=== PATIENT | male | born 1950 | race Two or more races ===

== ENCOUNTER 2024-02-29 15:41 | Inpatient (IN) | payer MEDICARE ==
[~2024-02-29] VITALS: Ht 170.2 cm; Wt 63.2 kg
[2024-02-29 17:47] LABS: Basophils # (auto) 0.1 10 ^3/uL (0-0.2); Basophils % (auto) 1.3 % (0.0-2.0); Eosinophils # (auto) 0.4 10 ^3/uL (0-0.8); Eosinophils % (auto) 5.2 % (0.0-7.0); Hematocrit 43.3 % (41.0-53.0); Hemoglobin 14.6 g/dL (13.5-17.5); Lymphocytes # (auto) 1.3 10 ^3/uL (0.4-5.4); Lymphocytes % (auto) 17.5 % (10.0-50.0); Mean Corpuscular Hemoglobin 30.6 pg (28.0-32.0); Mean Corpuscular Hgb Conc. 33.8 g/dL (32.0-36.0); Mean Corpuscular Volume 90.5 fL (80.0-100.0); Neutrophils # (auto) 4.6 10 ^3/uL (1.6-8.6); Nucleated Red Blood Cells % 0.1 %; Red Blood Cells 4.78 10^6/uL (4.5-5.90); Red Cell Distribution Width 14.3 % (11.8-14.3); White Blood Cell 7.4 10^3/uL (4.4-10.8)
[2024-02-29 18:10] LABS: Alanine Aminotransferase 339 U/L (7-40); Albumin 4.5 g/dL (3.2-4.8); Alkaline Phosphatase 430 U/L (46-116); Aspartate Aminotransferase 101 U/L (13-40); BUN/Creatinine Ratio 8.6 (10.0-20.0); Bilirubin, Total 4.6 mg/dL (0.2-1.0); Blood Urea Nitrogen 7 mg/dL (9-23); Calcium 9.9 mg/dL (8.7-10.4); Carbon Dioxide 22 mmol/L (20-30); Glucose 99 mg/dL (74-106); Total Protein 7.6 g/dL (5.7-8.2)
[2024-02-29] MEDS: SODIUM CHLORIDE 0.9% 1,000 ML IV ONE (18:19)
[2024-02-29 18:51] LABS: Anion Gap 8 (5-15); Chloride 104 mmol/L (98-107); Potassium 4.2 mmol/L (3.5-5.1); Sodium 134 mmol/L (136-145)
[2024-02-29] MEDS: PANTOPRAZOLE 40 MG TAB PO ONE (19:05)
[2024-02-29] MEDS: LIDOCAINE VISCOUS 2% 15ML UD PO ONE (19:05)
[2024-02-29] MEDS: SUCRALFATE 1 GM TAB PO ONE (19:05)
[2024-02-29] MEDS ORDERED: ONDANSETRON HCL 4 MG/2 ML VIAL IV PRN (19:30)
[2024-02-29] MEDS ORDERED: MORPHINE SULFATE INJ 2 MG/ml SYRG IV PRN (19:30)
[2024-02-29] MEDS ORDERED: NITROGLYCERIN 0.4 MG SL TAB SL PRN (19:30)
[2024-02-29] MEDS: SODIUM CHLORIDE 0.9% 1,000 ML IV SCH (19:30)
[2024-02-29 22:47] VITALS: PULSE 62; RESP 17; O2SAT 100
[2024-02-29] MEDS: traMADol HCL 50 MG TAB PO ONE (23:09)
[2024-02-29 23:27] LABS: Urine Bacteria FEW /hpf (None Seen); Urine Blood TRACE /uL (Negative); Urine Clarity Clear (Clear); Urine Color Dark-Yellow (Yellow); Urine Mucus FEW (None Seen); Urine Protein, UAD Negative (Negative); Urine Specific Gravity 1.012 (1.001-1.035); Urine Urobilinogen Normal (Negative); Urine WBC 1 /hpf (0 - 3)
[2024-03-01] VITALS (8 sets, daily range): BP systolic 135–167; BP diastolic 70–83; PULSE 59–67; RESP 18–20; TEMP 98–98.7; O2SAT 94–97
[2024-03-01] MEDS ORDERED: ATOR10TA52 PO (01:46)
[2024-03-01] MEDS ORDERED: OMEP-448 PO (01:46)
[2024-03-01] MEDS: MORPHINE SULFATE INJ 2 MG/ml SYRG IV PRN (02:19)
[2024-03-01 06:59] LABS: Basophils # (auto) 0.1 10 ^3/uL (0-0.2); Basophils % (auto) 0.9 % (0.0-2.0); Eosinophils # (auto) 0.3 10 ^3/uL (0-0.8); Eosinophils % (auto) 3.3 % (0.0-7.0); Hematocrit 39.4 % (41.0-53.0); Hemoglobin 13.5 g/dL (13.5-17.5); Lymphocytes # (auto) 1.5 10 ^3/uL (0.4-5.4); Lymphocytes % (auto) 20.1 % (10.0-50.0); Mean Corpuscular Hgb Conc. 34.1 g/dL (32.0-36.0); Mean Corpuscular Volume 90.7 fL (80.0-100.0); Monocytes # (auto) 1.1 10 ^3/uL (0-1.3); Monocytes % (auto) 14.9 % (0.0-12.0); Neutrophils # (auto) 4.6 10 ^3/uL (1.6-8.6); Neutrophils % (auto) 60.8 % (37.0-80.0); Red Blood Cells 4.35 10^6/uL (4.5-5.90); Red Cell Distribution Width 14.2 % (11.8-14.3); White Blood Cell 7.6 10^3/uL (4.4-10.8)
[2024-03-01 07:16] LABS: Alanine Aminotransferase 265 U/L (7-40); Alkaline Phosphatase 370 U/L (46-116); Anion Gap 5 (5-15); Aspartate Aminotransferase 82 U/L (13-40); BUN/Creatinine Ratio 10.8 (10.0-20.0); Blood Urea Nitrogen 9 mg/dL (9-23); Calcium 9.5 mg/dL (8.7-10.4); Carbon Dioxide 26 mmol/L (20-30); Chloride 105 mmol/L (98-107); Glucose 99 mg/dL (74-106); Potassium 4.1 mmol/L (3.5-5.1); Sodium 136 mmol/L (136-145)
[2024-03-01 07:17] LABS: Bilirubin, Total 5.2 mg/dL (0.2-1.0); Total Protein 6.7 g/dL (5.7-8.2)
[2024-03-01] MEDS: PANTOPRAZOLE 40 MG/10 ML VIAL INJ IV ONE (11:54)
[2024-03-01] MEDS: cefTRIAXone 1GM/50ML D5W 50 ML IV ONE (12:32)
[2024-03-01] MEDS: metroNIDAZOLE 500MG/100ML 100 ML IV SCH (13:49)
[2024-03-01] MEDS: metroNIDAZOLE 500MG/100ML 100 ML IV ONE (13:49)
[2024-03-01 13:55] LABS: Hepatitis B Surface Antigen Negative (Negative)
[2024-03-01 14:15] LABS: Hepatitis A Ab IgM Negative
[2024-03-01 14:16] LABS: Hepatitis B Core IgM Negative; Hepatitis C Antibody Negative (Negative)
[2024-03-02 05:00] VITALS: BP 143/76; PULSE 60; RESP 18; TEMP 98.6; O2SAT 94
[2024-03-02 05:03] LABS: Basophils # (auto) 0.1 10 ^3/uL (0-0.2); Basophils % (auto) 0.8 % (0.0-2.0); Eosinophils # (auto) 0.4 10 ^3/uL (0-0.8); Eosinophils % (auto) 5.1 % (0.0-7.0); Hematocrit 37.6 % (41.0-53.0); Hemoglobin 13.1 g/dL (13.5-17.5); Lymphocytes # (auto) 1.3 10 ^3/uL (0.4-5.4); Lymphocytes % (auto) 15.5 % (10.0-50.0); Mean Corpuscular Hemoglobin 31.3 pg (28.0-32.0); Mean Corpuscular Hgb Conc. 34.8 g/dL (32.0-36.0); Mean Corpuscular Volume 90.1 fL (80.0-100.0); Monocytes # (auto) 1.4 10 ^3/uL (0-1.3); Monocytes % (auto) 17.2 % (0.0-12.0); Neutrophils % (auto) 61.4 % (37.0-80.0); Red Blood Cells 4.17 10^6/uL (4.5-5.90); White Blood Cell 8.1 10^3/uL (4.4-10.8)
[2024-03-02 05:14] LABS: Alanine Aminotransferase 194 U/L (7-40); Albumin 3.9 g/dL (3.2-4.8); Alkaline Phosphatase 351 U/L (46-116); Anion Gap 6 (5-15); Aspartate Aminotransferase 58 U/L (13-40); BUN/Creatinine Ratio 9.8 (10.0-20.0); Bilirubin, Total 6.6 mg/dL (0.2-1.0); Blood Urea Nitrogen 8 mg/dL (9-23); Calcium 9.4 mg/dL (8.7-10.4); Carbon Dioxide 26 mmol/L (20-30); Chloride 103 mmol/L (98-107); Cholesterol 147 mg/dL (< 200); Glucose 106 mg/dL (74-106); HDL Cholesterol 26 mg/dL (40-59); LDL Cholesterol 106 mg/dL (< 100); Potassium 3.7 mmol/L (3.5-5.1); Sodium 135 mmol/L (136-145); Total Protein 6.5 g/dL (5.7-8.2); Triglycerides 80 mg/dL (< 150)
[2024-03-02] MEDS: DOCUSATE SOD 100 MG CAP PO PRN (05:34)
[2024-03-02 08:00] VITALS: PULSE 59; RESP 17; O2SAT 94
[2024-03-02 08:06] LABS: AFP Serum Tumor Marker <1.8 ng/mL (0.0-8.4); PSA Free 0.04 ng/mL; Prostate Specific Antigen 0.2 ng/mL (0.0-4.0)
[2024-03-02 09:00] VITALS: BP 140/74; PULSE 9; RESP 17; TEMP 98.6; O2SAT 94
[2024-03-02] MEDS: cefTRIAXone 1GM/50ML D5W 50 ML IV SCH (09:05)
[2024-03-02] MEDS: PANTOPRAZOLE 40 MG/10 ML VIAL INJ IV SCH (09:09)
[2024-03-02 11:28] LABS: INR 1.05 (0.9-1.15); Partial Thromboplastin Time 25.6 SEC (24.5-34.5); Prothrombin Time 11.1 sec (9.3-11.8)
[2024-03-02 13:00] VITALS: BP 144/69; PULSE 60; RESP 18; TEMP 97.6; O2SAT 95
[2024-03-02 17:00] VITALS: BP 154/75; PULSE 65; RESP 18; TEMP 98.7; O2SAT 95
[2024-03-02 20:00] VITALS: PULSE 60; RESP 18; O2SAT 93
[2024-03-03] VITALS (8 sets, daily range): BP systolic 129–153; BP diastolic 70–75; PULSE 50–66; RESP 16–20; TEMP 97.5–98.4; O2SAT 94–100
[2024-03-03 06:55] LABS: Basophils # (auto) 0.1 10 ^3/uL (0-0.2); Basophils % (auto) 0.9 % (0.0-2.0); Eosinophils # (auto) 0.6 10 ^3/uL (0-0.8); Eosinophils % (auto) 8.3 % (0.0-7.0); Hematocrit 36.6 % (41.0-53.0); Hemoglobin 12.8 g/dL (13.5-17.5); Lymphocytes # (auto) 1.3 10 ^3/uL (0.4-5.4); Lymphocytes % (auto) 17.8 % (10.0-50.0); Mean Corpuscular Hemoglobin 31.4 pg (28.0-32.0); Mean Corpuscular Hgb Conc. 34.9 g/dL (32.0-36.0); Mean Corpuscular Volume 89.9 fL (80.0-100.0); Monocytes # (auto) 1.2 10 ^3/uL (0-1.3); Monocytes % (auto) 16.6 % (0.0-12.0); Neutrophils # (auto) 4.2 10 ^3/uL (1.6-8.6); Neutrophils % (auto) 56.4 % (37.0-80.0); Nucleated Red Blood Cells % 0.1 %; Red Blood Cells 4.07 10^6/uL (4.5-5.90); Red Cell Distribution Width 14.2 % (11.8-14.3); White Blood Cell 7.4 10^3/uL (4.4-10.8)
[2024-03-03 07:06] LABS: Anion Gap 5 (5-15); Carbon Dioxide 27 mmol/L (20-30); Chloride 103 mmol/L (98-107); Potassium 3.5 mmol/L (3.5-5.1); Sodium 135 mmol/L (136-145)
[2024-03-03 07:07] LABS: Calcium 9.2 mg/dL (8.7-10.4)
[2024-03-03 07:12] LABS: BUN/Creatinine Ratio 8.5 (10.0-20.0); Blood Urea Nitrogen 7 mg/dL (9-23); Glucose 95 mg/dL (74-106)
[2024-03-03 08:28] LABS: Albumin 3.8 g/dL (3.2-4.8); Bilirubin, Direct 6.1 mg/dL (<0.3); Bilirubin, Total 7.9 mg/dL (0.2-1.0); Total Protein 6.5 g/dL (5.7-8.2)
[2024-03-03] MEDS: IOHEXOL 300 MG/ML 100ML BOTTLE IJ ONE (08:39)
[2024-03-03 14:20] LABS: INR 1.03 (0.9-1.15); Partial Thromboplastin Time 24.7 SEC (24.5-34.5); Prothrombin Time 10.9 sec (9.3-11.8)
[2024-03-03] MEDS ORDERED: ARTIFICIAL TEARS 15ml EACHEYE PRN (21:15)
[2024-03-04] VITALS (8 sets, daily range): BP systolic 110–161; BP diastolic 73–86; PULSE 52–77; RESP 17–20; TEMP 97.8–98.8; O2SAT 94–97
[2024-03-04 08:49] LABS: Basophils # (auto) 0.2 10 ^3/uL (0-0.2); Basophils % (auto) 1.9 % (0.0-2.0); Eosinophils # (auto) 0.5 10 ^3/uL (0-0.8); Eosinophils % (auto) 5.2 % (0.0-7.0); Hemoglobin 13.9 g/dL (13.5-17.5); Lymphocytes # (auto) 1.3 10 ^3/uL (0.4-5.4); Lymphocytes % (auto) 14.7 % (10.0-50.0); Mean Corpuscular Hemoglobin 30.7 pg (28.0-32.0); Mean Corpuscular Volume 90.2 fL (80.0-100.0); Monocytes # (auto) 0.9 10 ^3/uL (0-1.3); Monocytes % (auto) 9.8 % (0.0-12.0); Neutrophils % (auto) 68.4 % (37.0-80.0); Red Blood Cells 4.54 10^6/uL (4.5-5.90); Red Cell Distribution Width 14.3 % (11.8-14.3); White Blood Cell 8.8 10^3/uL (4.4-10.8)
[2024-03-04 09:12] LABS: Alanine Aminotransferase 127 U/L (7-40); Albumin 4.2 g/dL (3.2-4.8); Alkaline Phosphatase 340 U/L (46-116); Anion Gap 12 (5-15); Aspartate Aminotransferase 49 U/L (13-40); BUN/Creatinine Ratio 11.8 (10.0-20.0); Blood Urea Nitrogen 9 mg/dL (9-23); Calcium 9.7 mg/dL (8.7-10.4); Carbon Dioxide 21 mmol/L (20-30); Chloride 101 mmol/L (98-107); Glucose 139 mg/dL (74-106); Potassium 3.3 mmol/L (3.5-5.1); Sodium 134 mmol/L (136-145)
[2024-03-04 09:13] LABS: Bilirubin, Total 8.5 mg/dL (0.2-1.0); Total Protein 7.2 g/dL (5.7-8.2)
[2024-03-04] MEDS: POLYETHYLENE GLYCOL 17 GM PWDR PO ONE (18:39)
[2024-03-05] VITALS (8 sets, daily range): BP systolic 120–138; BP diastolic 65–79; PULSE 55–59; RESP 16–19; TEMP 98–98.5; O2SAT 93–95
[2024-03-05 06:42] LABS: Basophils # (auto) 0.3 10 ^3/uL (0-0.2); Basophils % (auto) 3.8 % (0.0-2.0); Eosinophils # (auto) 0.4 10 ^3/uL (0-0.8); Hematocrit 38.8 % (41.0-53.0); Hemoglobin 13.5 g/dL (13.5-17.5); Lymphocytes % (auto) 13.8 % (10.0-50.0); Mean Corpuscular Hemoglobin 31.2 pg (28.0-32.0); Mean Corpuscular Hgb Conc. 34.7 g/dL (32.0-36.0); Monocytes # (auto) 1.2 10 ^3/uL (0-1.3); Monocytes % (auto) 15.7 % (0.0-12.0); Neutrophils # (auto) 4.5 10 ^3/uL (1.6-8.6); Neutrophils % (auto) 60.7 % (37.0-80.0); Red Blood Cells 4.31 10^6/uL (4.5-5.90); White Blood Cell 7.5 10^3/uL (4.4-10.8)
[2024-03-05 07:01] LABS: Calcium 9.6 mg/dL (8.7-10.4); Chloride 102 mmol/L (98-107); Potassium 3.4 mmol/L (3.5-5.1); Sodium 134 mmol/L (136-145)
[2024-03-05 07:02] LABS: Anion Gap 5 (5-15); Carbon Dioxide 27 mmol/L (20-30)
[2024-03-05 07:07] LABS: Blood Urea Nitrogen 12 mg/dL (9-23); Glucose 99 mg/dL (74-106)
[2024-03-05] MEDS: LIDOCAINE 2%HCL (LOCAL ANESTH.) INJ 10ml MDV ONE (08:30)
[2024-03-05] MEDS: MIDAZOLAM HCL 2MG/2ML 2ml VIAL (1mg/ml) IV ONE (08:30)
[2024-03-05] MEDS: fentaNYL CITRATE 100 MCG/2 ML VL IV ONE (08:30)
[2024-03-05] MEDS: POTASSIUM CHL 20 Meq TABLET PO ONE (14:21)
[2024-03-06 05:00] VITALS: BP 113/68; PULSE 59; RESP 17; TEMP 98.3; O2SAT 94
[2024-03-06 06:57] LABS: Anion Gap 8 (5-15); Carbon Dioxide 25 mmol/L (20-30); Chloride 103 mmol/L (98-107); Potassium 3.7 mmol/L (3.5-5.1); Sodium 136 mmol/L (136-145)
[2024-03-06 06:58] LABS: Calcium 9.6 mg/dL (8.7-10.4)
[2024-03-06 07:02] LABS: Glucose 110 mg/dL (74-106)
[2024-03-06 07:03] LABS: Blood Urea Nitrogen 15 mg/dL (9-23)
[2024-03-06 07:25] LABS: BUN/Creatinine Ratio 17.2 (10.0-20.0)
[2024-03-06 07:29] LABS: Basophils # (auto) 0.1 10 ^3/uL (0-0.2); Eosinophils # (auto) 0.5 10 ^3/uL (0-0.8); Eosinophils % (auto) 6.8 % (0.0-7.0); Hematocrit 38.5 % (41.0-53.0); Hemoglobin 13.4 g/dL (13.5-17.5); Lymphocytes # (auto) 1.1 10 ^3/uL (0.4-5.4); Lymphocytes % (auto) 15.1 % (10.0-50.0); Mean Corpuscular Hemoglobin 31.7 pg (28.0-32.0); Mean Corpuscular Volume 90.7 fL (80.0-100.0); Monocytes # (auto) 1.1 10 ^3/uL (0-1.3); Monocytes % (auto) 15.3 % (0.0-12.0); Neutrophils # (auto) 4.3 10 ^3/uL (1.6-8.6); Neutrophils % (auto) 61.8 % (37.0-80.0); Red Blood Cells 4.24 10^6/uL (4.5-5.90); Red Cell Distribution Width 14.4 % (11.8-14.3)
[2024-03-06 08:00] VITALS: PULSE 65; RESP 16; O2SAT 98
[2024-03-06 08:50] VITALS: BP 124/69; PULSE 52; RESP 18; TEMP 98.8; O2SAT 97
[2024-03-06 09:08] LABS: Albumin 3.9 g/dL (3.2-4.8)
[2024-03-06 09:09] LABS: Bilirubin, Total 10.1 mg/dL (0.2-1.0); Total Protein 6.6 g/dL (5.7-8.2)
[2024-03-06 12:45] VITALS: BP 113/71; PULSE 55; RESP 18; TEMP 98.3; O2SAT 98
[2024-03-06 16:50] VITALS: BP 135/64; PULSE 54; RESP 18; TEMP 97.6; O2SAT 97
[2024-03-06 18:28] VITALS: BP 135/64; PULSE 54; RESP 18; TEMP 97.6; O2SAT 97
== END 2024-03-06 18:50 | disposition home or self-care (01) | DRG 435 ==
LOC: ER 15:41 → OVERFLOW 19:43 → WEST WING 03-01 01:40
PROVIDERS: ADMIT Internal Medicine Geriatric Medicine; ATTEND Internal Medicine Geriatric Medicine
PROC: 0FB23ZX Excision of Left Lobe Liver, Percutaneous Approach, Diagnostic (ICD-10-PCS; principal; 2024-03-05)
DX: C78.7 Secondary malignant neoplasm of liver and intrahepatic bile duct (principal); K83.1 Obstruction of bile duct; K27.9 Peptic ulcer, site unspecified, unspecified as acute or chronic, without hemorrhage or perforation; K29.70 Gastritis, unspecified, without bleeding; R74.01 Elevation of levels of liver transaminase levels; E78.5 Hyperlipidemia, unspecified; K72.90 Hepatic failure, unspecified without coma; E87.6 Hypokalemia; K59.00 Constipation, unspecified; K83.8 Other specified diseases of biliary tract; D63.8 Anemia in other chronic diseases classified elsewhere; Z81.8 Family history of other mental and behavioral disorders; Z85.038 Personal history of other malignant neoplasm of large intestine; Z90.49 Acquired absence of other specified parts of digestive tract; R16.0 Hepatomegaly, not elsewhere classified
CPT/HCPCS: 10005; 36415; 74150; 74160; 74176; 74181; 76705; 77012; 80048; 80053; 80061; 80074; 80076; 80320; 81001; 82040; 82105; 82140; 82247; 82248; 82270; 82378; 83605; 83615; 83690; 84075; 84154; 84155; 84450; 84460; 84484; 85025; 85045; 85610; 85730; 86038; 86141; 86301; 93005; 96360; G0378; J2001; J2250; J2470; J3490

== ENCOUNTER 2024-12-01 18:39 | Inpatient (IN) | payer MEDICARE, OTHER ==
[~2024-12-01] VITALS: Ht 165.1 cm; Wt 61.5 kg
[~2024-12-01 18:39] MED LIST: ATOR10TA52 PO; OMEP-448 PO
--- NOTE | 2024-12-01 19:12 | ED.PDOC ---
Altered Mental Status HPI Comments 74 year old male came to ER via EMS due to ALOC. Per EMS, patient was picked up at home, was noted by family members that patient has been acting more altered and confused the past 3 days. Noted loss of appetite and progressive worsening of jaundice. Noted chest discomfort and abdominal pain. 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 Allergies: Coded Allergies: NO KNOWN ALLERGIES (Unverified , 02/29/24) Home Meds Reported Medications Omeprazole (Omeprazole Dr) 40 Mg Cap, 1 CAP PO DAILY 03/01/24 Atorvastatin Calcium (ATORVASTATIN CALCIUM) 10 Mg Tab, 1 TAB PO DAILY 03/01/24 Information Source: Patient, Emergency Med Personnel Mode of Arrival: EMS Severity: Unable to Care for Self Timing: Days Duration: Since onset Prehospital treatment: Accucheck Quality: Decreased Alertness, Change in Behavior, Confusion History of: Other (colon and liver cancer) Associated Signs and Symptoms: None Past Medical History PAST MEDICAL HISTORY: Cancer, High Lipids Surgical History: Denies all surgeries Family History Family History: Reviewed,noncontributory to illness Social History Smoker: Non-Smoker Alcohol: Denies ETOH Use Drugs: Denies Drug Use Lives In: Home Unable to Obtain due to: Altered Mental Status Physical Exam General Appearance: No Apparent Distress, Normal HEENT: Normal ENT Inspection, Pharynx Normal, TMs Normal Neck: Full Range of Motion, Non-Tender, Normal, Normal Inspection Respiratory: Chest Non-Tender, Lungs Clear, No Accessory Muscle Use, No Respiratory Distress, Normal Breath Sounds Cardiovascular: No Edema, No JVD, No Murmur, No Gallop, Normal Peripheral Pulses, Regular Rate/Rhythm Breast Exam: Deferred Gastrointestinal: No Organomegaly, Non Tender, No Pulsatile Mass, Normal Bowel Sounds, Soft Genitalia: Deferred Pelvic: Deferred Rectal: Deferred Extremities: No calf tenderness, Normal capillary refill, Normal inspection, Normal range of motion, Non-tender, No pedal edema Musculoskeletal : Apperance: Normal 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 Was a procedure done?: No Differential Diagnosis (ALOC) Differential Diagnosis: Hypoglycemia, Encephalopathy X-Ray, Labs, Meds, VS Vital Signs Date Time Temp Pulse Resp B/P (MAP) Pulse Ox O2 Delivery O2 Flow Rate FiO2 12/02/24 00:00 86 12 127/72 (90) 97 12/01/24 22:00 84 14 132/78 (96) 98 12/01/24 20:44 98.4 99 14 128/78 (95) 97 98.4 12/01/24 18:58 99.0 99 18 128/78 (95) 93 99.0 12/01/24 18:43 101 Lab Test 12/01/24 21:45 12/01/24 20:50 Range/Units Troponin I High Sensitivity 4 4 </=54 ng/L White Blood Count 17.7 H 4.4-10.8 10^3/uL Red Blood Count 3.62 L 4.5-5.90 10^6/uL Hemoglobin 10.4 L 13.5-17.5 g/dL Hematocrit 30.6 L 41.0-53.0 % Mean Corpuscular Volume 84.7 80.0-100.0 fL Mean Corpuscular Hemoglobin 28.7 28.0-32.0 pg Mean Corpuscular Hemoglobin Concent 33.9 32.0-36.0 g/dL Red Cell Distribution Width 18.8 H 11.8-14.3 % Platelet Count 456 H 140-450 10^3/uL Mean Platelet Volume 6.4 L 6.9-10.8 fL Neutrophils (%) (Auto) 83.4 H 37.0-80.0 % Lymphocytes (%) (Auto) 4.6 L 10.0-50.0 % Monocytes (%) (Auto) 11.5 0.0-12.0 % Eosinophils (%) (Auto) 0.1 0.0-7.0 % Basophils (%) (Auto) 0.4 0.0-2.0 % Neutrophils # (Auto) 14.8 H 1.6-8.6 10 ^3/uL Lymphocytes # (Auto) 0.8 0.4-5.4 10 ^3/uL Monocytes # (Auto) 2.0 H 0-1.3 10 ^3/uL Eosinophils # (Auto) 0 0-0.8 10 ^3/uL Basophils # (Auto) 0.1 0-0.2 10 ^3/uL Nucleated Red Blood Cells 0.0 % Sodium Level 129 L 136-145 mmol/L Potassium Level 3.6 3.5-5.1 mmol/L Chloride Level 95 L 98-107 mmol/L Carbon Dioxide Level 23 20-31 mmol/L Anion Gap 11 5-15 Blood Urea Nitrogen 12 9-23 mg/dL Creatinine 0.46 L 0.700-1.30 mg/dL Glomerular Filtration Rate Calc 110 >90 mL/min BUN/Creatinine Ratio 26.1 H 10.0-20.0 Serum Glucose 104 74-106 mg/dL Lactic Acid Level 1.3 0.4-2.0 mmol/L Calcium Level 9.2 8.7-10.4 mg/dL Total Bilirubin 7.0 H 0.2-1.0 mg/dL Aspartate Amino Transferase (AST) 66 H 13-40 U/L Alanine Aminotransferase (ALT) 64 H 7-40 U/L Alkaline Phosphatase 436 H 46-116 U/L Ammonia < 10 L 11-32 umol/L Total Protein 6.9 5.7-8.2 g/dL Albumin 3.5 3.2-4.8 g/dL Lipase 18 12-53 U/L Time of 1ST Reevaluation: 19:06 Reevaluation 1ST: Unchanged Patient Education/Counseling: Diagnosis, Treatment Family Education/Counseling: No Family Present Departure 1 Departure Time of Disposition: 01:54 (Patient presented with abdominal pain that was concerning for possible appendicits, gastritis, cholecystitis, colitis, gastroenteritis, sbo, or orther possible surgical emergency. Data: 1. I ordered and reviewed the result of at least 3 labs including a CBC, BMP, and Urinalysis. 2. I independently interpreted the following tests: CT Abdoment and Pelvis is concerning for malignancy .Risk:This patient has a high risk of morbidity due to further diagnostic testing or treatment and may suffer from an acute abdominal process disorder. Workup reveals concern for malignancy and patient should be admitted for further workup. and possible expert consultation. ) Impression: Primary Impression: Hepatic encephalopathy Additional Impressions: Malignancy Abdominal pain Qualified Codes: R10.84 - Generalized abdominal pain Disposition: ADMITTED INPATIENT Admit to: Med Surg Condition: Serious Critical Care Note Critical Care Time?: Yes Critical care comment: Altered mental status Authorized and Performed by: Matilde Narvaez MD Total critical care time: Approximately 47 minutes Due to a high probability of clinically significant, life threatening deter ioration, the patient required my highest level of preparedness to intervene emergently and I personally spent this critical care time directly and personally managing the patient. This critical care time included obtaining a history; examining the patient; pulse oximetry; ordering and review of studies; arranging urgent treatment with development of a management plan; evaluation of patient's response to treatment; frequent reassessment; and, discussions with other providers. This critical care time was performed to assess and manage the high probability of imminent, life-threatening deterioration that could result in multi-organ fa ilure. It was exclusive of separately billable procedures and treating other patients and teaching time. Please see my other sections and the rest of the note for further information on patient assessment and treatment. Stability Stability form required: No Heart Score Heart Score: Heart Score Response (Comments) Value History N/A 0 EKG N/A 0 Age N/A 0 Risk Factors N/A 0 Troponin N/A 0 Total 0 I personally scribed for MATILDE NARVAEZ MD ([email or web address]) on 12/01/24 at 19:12. Electronically submitted by Wild Ordoñez ([email or web address]). MATILDE NARVAEZ MD Dec 01, 2024 19:12
[2024-12-01 21:01] LABS: Basophils # (auto) 0.1 10 ^3/uL (0-0.2); Basophils % (auto) 0.4 % (0.0-2.0); Eosinophils # (auto) 0 10 ^3/uL (0-0.8); Eosinophils % (auto) 0.1 % (0.0-7.0); Hematocrit 30.6 % (41.0-53.0); Hemoglobin 10.4 g/dL (13.5-17.5); Lymphocytes # (auto) 0.8 10 ^3/uL (0.4-5.4); Lymphocytes % (auto) 4.6 % (10.0-50.0); Mean Corpuscular Hemoglobin 28.7 pg (28.0-32.0); Mean Corpuscular Hgb Conc. 33.9 g/dL (32.0-36.0); Mean Corpuscular Volume 84.7 fL (80.0-100.0); Monocytes % (auto) 11.5 % (0.0-12.0); Neutrophils # (auto) 14.8 10 ^3/uL (1.6-8.6); Neutrophils % (auto) 83.4 % (37.0-80.0); Platelet Count (auto) 456 10^3/uL (140-450); Red Blood Cells 3.62 10^6/uL (4.5-5.90); Red Cell Distribution Width 18.8 % (11.8-14.3); White Blood Cell 17.7 10^3/uL (4.4-10.8)
[2024-12-01 21:22] LABS: Albumin 3.5 g/dL (3.2-4.8); Anion Gap 11 (5-15); BUN/Creatinine Ratio 26.1 (10.0-20.0); Blood Urea Nitrogen 12 mg/dL (9-23); Calcium 9.2 mg/dL (8.7-10.4); Carbon Dioxide 23 mmol/L (20-31); Glucose 104 mg/dL (74-106); Lipase 18 U/L (12-53); Potassium 3.6 mmol/L (3.5-5.1); Total Protein 6.9 g/dL (5.7-8.2)
[2024-12-01 21:24] LABS: Alanine Aminotransferase 64 U/L (7-40); Alkaline Phosphatase 436 U/L (46-116); Aspartate Aminotransferase 66 U/L (13-40); Chloride 95 mmol/L (98-107); Sodium 129 mmol/L (136-145)
[2024-12-01] MEDS: IOHEXOL 300 MG/ML 100ML BOTTLE IJ ONE (22:28)
[2024-12-01] MEDS: CEFEPIME 2GM/50ML NS 50 ML IV ONE (23:13)
[2024-12-01] MEDS: VANCOMYCIN 1GM/200ML PM 200 ML IV ONE (23:13)
--- NOTE | 2024-12-01 23:13 | DVH ---
CHEST RADIOGRAPH Indication: ams Technique: Single frontal view of the chest was obtained COMPARISON: None FINDINGS: Lines and Tubes: Right Port-A-Cath terminates at the level of the cavoatrial junction. Lungs: Clear Pleura: No effusion. No pneumothorax. Cardiomediastinal contours: Unremarkable Bones: Unremarkable IMPRESSION: 1. No acute disease. 2. Right Port-A-Cath.
--- NOTE | 2024-12-01 23:13 | DVH ---
EXAM: CT HEAD WITHOUT CONTRAST INDICATION: ams TECHNIQUE: CT of the head without intravenous contrast. Radiation Dose : 1. Head: CT Dose: CTDI volume is 55.29 mGy. Dose-length product is 979.13 mGy*cm The dose indicators for CT are the volume Computed Tomography (CT) Dose Index (CTDIvol) and the Dose Length Product (DLP), and are measured in units of mGy and mGy-cm, respectively. These indicators are not patient dose, but values generated from the CT scanner acquisition factors. The report includes radiation exposure data for exposures received during this examination. COMPARISON: None FINDINGS: There is no evidence of acute intracranial hemorrhage, extra-axial collection, mass effect, midline s hift, herniation or hydrocephalus. The ventricles, sulci and cisterns are age appropriate. Increased prominence of the ventricles, sulci and cisterns is consistent with sequelae of atrophic cortical volume loss. The stahl-white differentiation is intact. Moderate diffuse confluent periventricular and subcortical white matter hypoattenuation is nonspecifi c but may be related to small vessel ischemic disease. The visualized paranasal sinuses and mastoid air cells are clear. The surrounding soft tissues and osseous structures are unremarkable. IMPRESSION: 1. No acute intracranial abnormality. 2. 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 Radiation optimization: All CT scans at this facility use at least one of these dose optimization edd hniques: automated exposure control mA and/or kV adjustment per patient size (includes targeted exam s where dose is matched to clinical indication) or iterative reconstruction.
[2024-12-01] MEDS: SODIUM CHLORIDE 0.9% 1,000 ML IV ONE (23:14)
--- NOTE | 2024-12-01 23:23 | DVH ---
Exam: CT CT AB PEL WITH IV CON ONLY History: ams, hx of liver cancer COMPARISON: None Technique: Multidetector spiral CT of the abdomen and pelvis was performed from lung bases to pubic s ymphysis. Intravenous contrast was administered during this examination. Portal venous imaging was obtained. Axial, coronal and sagittal multiplanar reformats were performed by the technologist on a separate workstation. Radiation Dose : 1. Abdomen/Pelvis: CTDIvol 5.8 mGy, DLP 335 mGy*cm. CONTRAST: Type of contrast: Omni 300 Contrast injected: 100 ml Findings: Lung Bases: Right lower lobe atelectasis/scarring. Liver: Poorly defined hypo attenuated mass lesion is seen in segment 4B measuring up to 4.8 cm, possi ana cholangiocarcinoma. Gallbladder and Biliary Tree: Qano-zt-oxypwhia intrahepatic biliary dilatation. CBD stent in place Spleen: Unremarkable Pancreas: The pancreas is normal in appearance without focal lesions or abnormal enhancement. Adrenal Glands: Unremarkable Kidneys: No hydronephrosis. Bladder: Unremarkable Bowel: The stomach is grossly normal in appearance. Concentric wall thickening of the distal colon lang ggestive of mild colitis The appendix is not visualized; however, no secondary findings of acute humaira endicitis identified. Ascites: Absent Lymphadenopathy: No mesenteric, retroperitoneal or periportal lymphadenopathy. Abdominal Wall and Mesentery: Unremarkable. Vasculature: The visualized abdominal aorta is normal in size and caliber. Abdominal and pelvic vess els demonstrate normal enhancement. Pelvic Organs: Unremarkable Musculoskeletal: No aggressive focal bony lesions, acute fractures or dislocation. IMPRESSION: 1. Poorly defined hypo attenuated mass lesion in segment 4 B measures up to 4.8 cm, possibly cholangi ocarcinoma. 2. Rcpt-bc-paimdjec intrahepatic biliary dilatation with CBD stent in place 3. Concentric wall thickening of the distal colon suggestive of mild colitis Radiation optimization: All CT scans at this facility use at least one of these dose optimization edd hniques: automated exposure control mA and/or kV adjustment per patient size (includes targeted exam s where dose is matched to clinical indication) or iterative reconstruction.
[2024-12-02] MEDS: SODIUM CHLORIDE 0.9% 1,000 ML IV ONE (00:30)
[2024-12-02 01:25] LABS: Urine Bacteria None Seen /hpf (None Seen)
[2024-12-02 01:35] LABS: Urine Blood Negative /uL (Negative); Urine Clarity Clear (Clear); Urine Color Dark-Yellow (Yellow); Urine Protein, UAD TRACE (Negative); Urine Squamous Epithelial Cell FEW /hpf (<5); Urine Urobilinogen Normal (Negative); Urine WBC < 1 /HPF (0-3)
[2024-12-02 01:37] LABS: Urine Specific Gravity > 1.050 (1.001-1.035)
--- NOTE | 2024-12-02 02:26 | DVHHP2 ---
Admitting Diagnosis: ALOC, Transaminitis, Colitis History of Present Illness History Source: Patient, MD Notes Exam Limitations: No limitations HPI Mr. Guy Holloway is a 74 year old male with a history of colon cancer , liver cancer who presents with a chief complaint of generalized weakness, abdominal pain, ALOC reported by family. Patient reports loss of appetite and progressive worsening of jaundice. Noted abdominal pain. Patient is alert and oriented x3 reports generalized abdominal pain with generalized weakness and jaundice. Patient reports he is on chemotherapy for the liver CA. Patient denies diarrhea, nausea, vomiting, dizziness, headaches, fevers, chills, dysuria, hematuria. Patient admitted for further evaluation. Home Meds Reported Medications Omeprazole (Omeprazole Dr) 40 Mg Cap, 1 CAP PO DAILY 03/01/24 Atorvastatin Calcium (ATORVASTATIN CALCIUM) 10 Mg Tab, 1 TAB PO DAILY 03/01/24 Past Medical History Cardiac: No pertinent Hx Pulmonary: No pertinent Hx Central Nervous System: No pertinent Hx GI: No pertinent Hx Hemotology/Oncology: No pertinent Hx Hepatobiliary: No pertinent Hx Psychiatric: No pertinent Hx Musculoskeletal: No pertinent Hx Rheumotologic: No pertinent Hx Infectious Disease: No peritnent Hx ENT: No pertinent Hx Renal/: No pertinent Hx Endocrine: No pertinent Hx Dermatology: No pertinent Hx Others Liver CA, Colon CA Patient Family History: Depression G8 MOTHER G8 FATHER Smoker: No Hx (Negative) Alocohol: None Drugs: None Lives with: With family Domestic Violence: Neg Review of Systems Constitutional: No symptom reported Ears, Nose, & Throat: No symptom reported Eyes: No symptom reported Pulmonary/Respiratory: No symptom reported Cardiovascular: No symptom reported Gastrointestinal: Abdominal Pain Genitourinary: No symptom reported Musculoskeletal: No symptom reported Skin: No symptom reported Psychiatric: No symptom reported Endocrine: No symptom reported Hemotologic/Lymphatic: No symptom reported H&P Exam Vital Signs Vital Signs Date Time Temp Pulse Resp B/P (MAP) Pulse Ox O2 Delivery O2 Flow Rate FiO2 12/01/24 20:44 98.4 99 14 128/78 (95) 97 98.4 General Appeara: Thin Head Exam: Normal inspection Neck Exam: Normal inspection, Non-tender, Normal alignment Eye Exam: bilateral eye Normal inspection, bilateral eye PERRL, bilateral eye EOMI, bilateral eye Scleral icterus Ear Exam: bilateral ear Auricle normal Nasal Exam: Normal inspection Mouth: Normal Inspection Pulmonary/Respiratory: Normal inspection, Normal breath sounds, Chest non- tender, Lungs clear Cardiovascular/Chest: Normal inspection, Regular rate, Normal Rhythm Peripheral Pulses: 2+ dorsalis pedis (R), 2+ dorsalis pedis (L), 2+ Radial (R), 2+ Radial (L) Abdominal Exam: Normal bowel sounds, Soft, No tenderness Rectal Exam: Deferred 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: Normal hearing, Normal speech, PERRL Motor/Sensory: Normal sensory function, Normal motor function Appearance: Appropriate appearance, Appropriate insight Eye contact/ Speech: Cooperative, Good eye contact, Normal speech Thoughts/Psych: Normal thought pattern Skin Exam: Normal inspection, Warm/dry, Jaundice Labs/Xrays Labs Test 12/02/24 01:00 12/01/24 21:45 12/01/24 20:50 Range/Units Urine Color Dark-yellow Yellow Urine Clarity Clear Clear Urine pH 7.0 5.0-9.0 Urine Specific [place] > 1.050 H 1.001-1.035 Urine Protein Trace H Negative Urine Ketones Trace Negative Urine Blood Negative Negative /uL Urine Nitrite Negative Negative Urine Bilirubin 2+ Negative Urine Urobilinogen Normal Negative mg/dL Urine Leukocyte Esterase Negative Negative /uL Urine RBC 3 0 - 3 /hpf Urine Microscopic WBC < 1 0-3 /HPF Urine Squamous Epithelial Cells Few <5 /hpf Urine Bacteria None seen None Seen /hpf Urine Glucose Normal Normal mg/dL Troponin I High Sensitivity 4 </=54 ng/L White Blood Count 17.7 H 4.4-10.8 10^3/uL Red Blood Count 3.62 L 4.5-5.90 10^6/uL Hemoglobin 10.4 L 13.5-17.5 g/dL Hematocrit 30.6 L 41.0-53.0 % Mean Corpuscular Volume 84.7 80.0-100.0 fL Mean Corpuscular Hemoglobin 28.7 28.0-32.0 pg Mean Corpuscular Hemoglobin Concent 33.9 32.0-36.0 g/dL Red Cell Distribution Width 18.8 H 11.8-14.3 % Platelet Count 456 H 140-450 10^3/uL Mean Platelet Volume 6.4 L 6.9-10.8 fL Neutrophils (%) (Auto) 83.4 H 37.0-80.0 % Lymphocytes (%) (Auto) 4.6 L 10.0-50.0 % Monocytes (%) (Auto) 11.5 0.0-12.0 % Eosinophils (%) (Auto) 0.1 0.0-7.0 % Basophils (%) (Auto) 0.4 0.0-2.0 % Neutrophils # (Auto) 14.8 H 1.6-8.6 10 ^3/uL Lymphocytes # (Auto) 0.8 0.4-5.4 10 ^3/uL Monocytes # (Auto) 2.0 H 0-1.3 10 ^3/uL Eosinophils # (Auto) 0 0-0.8 10 ^3/uL Basophils # (Auto) 0.1 0-0.2 10 ^3/uL Nucleated Red Blood Cells 0.0 % Sodium Level 129 L 136-145 mmol/L Potassium Level 3.6 3.5-5.1 mmol/L Chloride Level 95 L 98-107 mmol/L Carbon Dioxide Level 23 20-31 mmol/L Anion Gap 11 5-15 Blood Urea Nitrogen 12 9-23 mg/dL Creatinine 0.46 L 0.700-1.30 mg/dL Glomerular Filtration Rate Calc 110 >90 mL/min BUN/Creatinine Ratio 26.1 H 10.0-20.0 Serum Glucose 104 74-106 mg/dL Lactic Acid Level 1.3 0.4-2.0 mmol/L Calcium Level 9.2 8.7-10.4 mg/dL Total Bilirubin 7.0 H 0.2-1.0 mg/dL Aspartate Amino Transferase (AST) 66 H 13-40 U/L Alanine Aminotransferase (ALT) 64 H 7-40 U/L Alkaline Phosphatase 436 H 46-116 U/L Ammonia < 10 L 11-32 umol/L Total Protein 6.9 5.7-8.2 g/dL Albumin 3.5 3.2-4.8 g/dL Lipase 18 12-53 U/L Assessment/Plan Problem List: (1) Altered level of consciousness (2) Colitis (3) Hyperbilirubinemia (4) Transaminitis (5) Liver cancer Plan This is a 74 yo male with a known history of colon CA, liver CA who presents with ALOC , generalized weakness, abdominal pain. Patient was found to have 1. Altered mental status 2. Acute Colitis 3. Transaminitis 4. Hyperbilirubinemia 5. Leukocytosis 6. Intrahepatic biliary dilatation with CBD stent in place Plan Admit telemetry unit Gastroenterology consultation IV antibiotics IV fluids NS urinalysis, BC x2 MRCP rule out cholangiocarcinoma NPO GI ppx Protonix DVT ppx SCD's PT evaluation Discussed all above with patient who verbalizes agreement and understanding of care plan. All questions were answered. Discussed with supervising MD. Patient's chart is reviewed and discussed with the nurse practitioner. I agree with the nurse practitioner's evaluation, documentation, assessment and care plan as outlined. Plan discussed with: Patient, Other Code Visit Code Visit Total Time (mins): 45 DEBBIE HOBSON Dec 02, 2024 02:26 ANNELISE AVALOS MD Dec 03, 2024 17:37
[2024-12-02] MEDS: MORPHINE SULFATE INJ 2 MG/ml SYRG IV PRN ×2 (04:58→11:16)
[2024-12-02] MEDS: ONDANSETRON HCL 4 MG/2 ML VIAL IV PRN ×2 (04:59→11:15)
[2024-12-02 06:06] LABS: Eosinophils # (auto) 0 10 ^3/uL (0-0.8); Hemoglobin 10.7 g/dL (13.5-17.5); Mean Corpuscular Hemoglobin 28.7 pg (28.0-32.0); Mean Corpuscular Volume 87.7 fL (80.0-100.0)
[2024-12-02 06:07] LABS: Basophils # (auto) 0.1 10 ^3/uL (0-0.2); Basophils % (auto) 0.5 % (0.0-2.0); Eosinophils % (auto) 0.2 % (0.0-7.0); Hematocrit 32.7 % (41.0-53.0); Lymphocytes % (auto) 5.9 % (10.0-50.0); Mean Corpuscular Hgb Conc. 32.8 g/dL (32.0-36.0); Monocytes # (auto) 2.2 10 ^3/uL (0-1.3); Monocytes % (auto) 13.1 % (0.0-12.0); Neutrophils # (auto) 13.4 10 ^3/uL (1.6-8.6); Neutrophils % (auto) 80.3 % (37.0-80.0); Platelet Count (auto) 501 10^3/uL (140-450); Red Blood Cells 3.73 10^6/uL (4.5-5.90); Red Cell Distribution Width 19.3 % (11.8-14.3); White Blood Cell 16.7 10^3/uL (4.4-10.8)
[2024-12-02 06:18] LABS: INR 1.45 (0.9-1.15); Prothrombin Time 14.8 sec (9.3-11.8)
[2024-12-02 06:23] LABS: Albumin 3.6 g/dL (3.2-4.8); Anion Gap 12 (5-15); BUN/Creatinine Ratio 19.6 (10.0-20.0); Calcium 9.3 mg/dL (8.7-10.4); Carbon Dioxide 20 mmol/L (20-31); Chloride 98 mmol/L (98-107); Glucose 93 mg/dL (74-106); Total Protein 7.1 g/dL (5.7-8.2)
[2024-12-02 06:25] LABS: Alanine Aminotransferase 69 U/L (7-40); Alkaline Phosphatase 440 U/L (46-116); Aspartate Aminotransferase 73 U/L (13-40); Bilirubin, Total 7.9 mg/dL (0.2-1.0); Blood Urea Nitrogen 9 mg/dL (9-23); Potassium 3.3 mmol/L (3.5-5.1); Sodium 130 mmol/L (136-145)
[2024-12-02] MEDS: metroNIDAZOLE 500MG/100ML 100 ML IV SCH (06:45)
[2024-12-02 07:30] VITALS: PULSE 79; PULSE 84; RESP 20; RESP 26; O2SAT 94; O2SAT 97
[2024-12-02] MEDS: levoFLOXacin 500MG 100 ML IV SCH (08:00)
[2024-12-02] MEDS: PANTOPRAZOLE 40 MG/10 ML VIAL INJ IV SCH (11:10)
--- NOTE | 2024-12-02 12:11 | DVHINCON2 ---
Date of service: Dec 02, [address] HOBSON Reason for Consultation Liver cancer with worsening jaundice History of Present Illness 74-YEAR-OLD WITH A HISTORY OF COLON CANCER AND LIVER METS PRESENTING WITH COMPLAINTS OF WEAKNESS TIREDNESS ALTERED LEVEL OF CONSCIOUSNESS DECREASED APPETITE AND WORSENING OR JAUNDICE AND ALSO HAS GOT ABDOMINAL PAIN IN THE RIGHT UPPER QUADRANT HE IS APPARENTLY ON CHEMOTHERAPY FOR LIVER CANCER NAUSEA NO VOMITING NO HEMATEMESIS NO MELENA GI CONSULT IS FOR THE LIVER PROBLEMS AND WORSENING JAUNDICE Past Medical History Cancer of the liver cancer of the colon Past Surgical History Colon surgery Family History: Depression G8 MOTHER G8 FATHER Family History Noncontributory Social History Denies smoking drinking Allergies: Coded Allergies: NO KNOWN ALLERGIES (Unverified , 02/29/24) Home Meds Reported Medications Omeprazole (Omeprazole Dr) 40 Mg Cap, 1 CAP PO DAILY 03/01/24 Atorvastatin Calcium (ATORVASTATIN CALCIUM) 10 Mg Tab, 1 TAB PO DAILY 03/01/24 Current Medications Current Medications Medications (Trade) Dose Ordered Sig/Latrell Route PRN Reason Start Time Stop Time Status Last Admin Metronidazole 100 ml @ 100 mls/hr Q8HR IV 12/02/24 06:00 12/02/24 06:45 Ondansetron HCl (Zofran) 4 mg Q6HPRN PRN IV NAUSEA / VOMITING 12/02/24 00:30 12/02/24 09:21 DC 12/02/24 04:59 Morphine Sulfate 2 mg Q6HPRN PRN IV PAIN SCALE 7 THRU 10 12/02/24 00:30 12/02/24 05:26 DC 12/02/24 04:58 Pantoprazole Sodium (Protonix) 40 mg DAILY IV 12/02/24 10:00 12/02/24 11:10 Levofloxacin/ Dextrose 100 ml @ 100 mls/hr DAILY IV 12/02/24 10:00 12/02/24 11:10 Morphine Sulfate 2 mg Q4HPRN PRN IV SEVERE PAIN (7-10 PAIN SCALE) 12/02/24 05:00 12/02/24 11:16 Ondansetron HCl (Zofran) 4 mg Q4HPRN PRN IV NAUSEA / VOMITING 12/02/24 05:15 12/02/24 11:15 Review of Systems Noncontributory Vital Signs Vital Signs Date Time Temp Pulse Resp B/P (MAP) Pulse Ox O2 Delivery O2 Flow Rate FiO2 12/02/24 11:16 90 26 135/76 12/02/24 08:00 96 12/02/24 07:30 Room Air* 0 21 12/02/24 07:30 98.3 98.3 Physical Exam Moderately built and nourished male in no acute distress HEENT examination scleral icterus Lungs clear Cardio vascular unable Abdomen is soft mild tenderness in the right upper quadrant no rigidity no guarding Bowel sounds normal Right upper extremity still no nodular possible from the liver tumors but unable to feel any definite mass Extremities no edema Neuro grossly intact Labs/Diagnostic Data Labs Test 12/02/24 05:12 12/02/24 01:00 12/01/24 21:45 12/01/24 20:50 Range/Units White Blood Count 16.7 H 4.4-10.8 10^3/uL Red Blood Count 3.73 L 4.5-5.90 10^6/uL Hemoglobin 10.7 L 13.5-17.5 g/dL Hematocrit 32.7 L 41.0-53.0 % Mean Corpuscular Volume 87.7 80.0-100.0 fL Mean Corpuscular Hemoglobin 28.7 28.0-32.0 pg Mean Corpuscular Hemoglobin Concent 32.8 32.0-36.0 g/dL Red Cell Distribution Width 19.3 H 11.8-14.3 % Platelet Count 501 H 140-450 10^3/uL Mean Platelet Volume 6.6 L 6.9-10.8 fL Neutrophils (%) (Auto) 80.3 H 37.0-80.0 % Lymphocytes (%) (Auto) 5.9 L 10.0-50.0 % Monocytes (%) (Auto) 13.1 H 0.0-12.0 % Eosinophils (%) (Auto) 0.2 0.0-7.0 % Basophils (%) (Auto) 0.5 0.0-2.0 % Neutrophils # (Auto) 13.4 H 1.6-8.6 10 ^3/uL Lymphocytes # (Auto) 1.0 0.4-5.4 10 ^3/uL Monocytes # (Auto) 2.2 H 0-1.3 10 ^3/uL Eosinophils # (Auto) 0 0-0.8 10 ^3/uL Basophils # (Auto) 0.1 0-0.2 10 ^3/uL Nucleated Red Blood Cells 0.0 % Prothrombin Time 14.8 H 9.3-11.8 sec Prothrombin Time INR 1.45 H 0.9-1.15 Sodium Level 130 L 136-145 mmol/L Potassium Level 3.3 L 3.5-5.1 mmol/L Chloride Level 98 98-107 mmol/L Carbon Dioxide Level 20 20-31 mmol/L Anion Gap 12 5-15 Blood Urea Nitrogen 9 9-23 mg/dL Creatinine 0.46 L 0.700-1.30 mg/dL Glomerular Filtration Rate Calc 110 >90 mL/min BUN/Creatinine Ratio 19.6 10.0-20.0 Serum Glucose 93 74-106 mg/dL Calcium Level 9.3 8.7-10.4 mg/dL Total Bilirubin 7.9 H 0.2-1.0 mg/dL Aspartate Amino Transferase (AST) 73 H 13-40 U/L Alanine Aminotransferase (ALT) 69 H 7-40 U/L Alkaline Phosphatase 440 H 46-116 U/L Total Protein 7.1 5.7-8.2 g/dL Albumin 3.6 3.2-4.8 g/dL Urine Color Dark-yellow Yellow Urine Clarity Clear Clear Urine pH 7.0 5.0-9.0 Urine Specific [place] > 1.050 H 1.001-1.035 Urine Protein Trace H Negative Urine Ketones Trace Negative Urine Blood Negative Negative /uL Urine Nitrite Negative Negative Urine Bilirubin 2+ Negative Urine Urobilinogen Normal Negative mg/dL Urine Leukocyte Esterase Negative Negative /uL Urine RBC 3 0 - 3 /hpf Urine Microscopic WBC < 1 0-3 /HPF Urine Squamous Epithelial Cells Few <5 /hpf Urine Bacteria None seen None Seen /hpf Urine Glucose Normal Normal mg/dL Troponin I High Sensitivity 4 </=54 ng/L Lactic Acid Level 1.3 0.4-2.0 mmol/L Ammonia < 10 L 11-32 umol/L Lipase 18 12-53 U/L Assessment 74-year-old with a history of colon cancer with the liver Mets on chemotherapy presenting with the abdominal pain altered level of consciousness and jaundice Physical examination shows flexion to be icteric and tenderness in the right upper quadrant Bilirubin was seven AST of 66 ALT of 64 alk phos is 436 ammonia level is normal Clinical impression Carcinoma of the colon with Mets to the liver with worsening jaundice properly from metastases No evidence of any hepatic encephalopathy at this time ammonia level is normal Plan/Recommendation Oncology consult Symptomatic treatment Monitor the bilirubin and liver enzymes closely Watch for hepatic encephalopathy Thank you Dr. Resendiz Plan discussed with: Patient DEMETRIO RESENDIZ MD Dec 02, 2024 12:11
--- NOTE | 2024-12-02 12:50 | DVH ---
CLINICAL INFORMATION: Rule out cholangiocarcinoma. History of liver cancer. TECHNIQUE: Multisequence multiplanar MRI images of the abdomen were obtained without IV contrast. Teodoro reinoso T2-weighted MRCP images were obtained. 3D MRCP images were created. COMPARISON: MRI MRCP MRI on DOS: 03/01/24 FINDINGS: Examination is limited without IV contrast, particularly for evaluating for malignancy. Dis tended gallbladder with likely sludge and/or layering gallstones. There is a biliary stent in place, when correlated with recent CT exam, with the stent extending from the common bile duct into the righ t hepatic duct. There is intrahepatic biliary ductal dilatation involving the right hepatic lobe. The common bile duct measures up to 8.5 mm in diameter, mildly dilated. There are areas of T2 hypointens e signal within the common bile duct, possibly due to gallstones. T2 hyperintense lesion in the right hepatic lobe segment VII measures up to 2.8 cm appears to correlate with a low-density lesion in thi s location on recent CT. The lesion is in close proximity to and possibly contiguous with a right int rahepatic bile duct. Heterogeneous signal in the left hepatic lobe, poorly delineated from the adjace nt liver parenchyma on noncontrast imaging with masslike appearance measuring up to 8.5 cm in greates t dimension, correlating with the findings seen on CT, although not well characterized without IV con trast. There is associated capsular retraction. There appears to be mild diffusion restriction in thi s location. The left hepatic lobe is overall small in size. IMPRESSION: 1. Heterogeneous, masslike appearance appearance involving most of the left hepatic lobe, poorly eval uated on noncontrast enhanced exam. Malignancy not excluded. There appears to be mild diffusion restr iction and capsular retraction. 2. Biliary stent in place with intrahepatic biliary ductal dilatation involving the right intrahepati c bile ducts. 3. Dilated common bile duct with possible choledocholithiasis distal to biliary stent. 4. Distended gallbladder with sludge and/or gallstones. Additional findings as described above. 5. T2 hyperintense lesion in the right hepatic lobe in close proximity to and possibly contiguous wit h a right intrahepatic bile duct, possible choledochal cyst.
[2024-12-02 19:45] VITALS: PULSE 82; RESP 24; O2SAT 98
[2024-12-03 05:48] LABS: Basophils # (auto) 0.1 10 ^3/uL (0-0.2); Eosinophils # (auto) 0 10 ^3/uL (0-0.8); Neutrophils # (auto) 10.8 10 ^3/uL (1.6-8.6)
[2024-12-03 05:52] LABS: Basophils % (auto) 0.6 % (0.0-2.0); Eosinophils % (auto) 0.2 % (0.0-7.0); Hematocrit 26.3 % (41.0-53.0); Lymphocytes % (auto) 6.9 % (10.0-50.0); Mean Corpuscular Hemoglobin 28.7 pg (28.0-32.0); Mean Corpuscular Hgb Conc. 34.2 g/dL (32.0-36.0); Mean Corpuscular Volume 83.9 fL (80.0-100.0); Monocytes # (auto) 2.4 10 ^3/uL (0-1.3); Monocytes % (auto) 16.5 % (0.0-12.0); Neutrophils % (auto) 75.8 % (37.0-80.0); Platelet Count (auto) 471 10^3/uL (140-450); Red Blood Cells 3.13 10^6/uL (4.5-5.90); Red Cell Distribution Width 18.6 % (11.8-14.3); White Blood Cell 14.3 10^3/uL (4.4-10.8)
[2024-12-03 06:06] LABS: Anion Gap 11 (5-15); BUN/Creatinine Ratio 21.4 (10.0-20.0); Calcium 8.7 mg/dL (8.7-10.4); Carbon Dioxide 22 mmol/L (20-31); Chloride 100 mmol/L (98-107); Glucose 91 mg/dL (74-106); Total Protein 5.9 g/dL (5.7-8.2)
[2024-12-03 06:12] LABS: Alanine Aminotransferase 55 U/L (7-40); Albumin 2.9 g/dL (3.2-4.8); Alkaline Phosphatase 318 U/L (46-116); Aspartate Aminotransferase 69 U/L (13-40); Bilirubin, Total 7.1 mg/dL (0.2-1.0); Blood Urea Nitrogen 9 mg/dL (9-23); Potassium 3.1 mmol/L (3.5-5.1); Sodium 133 mmol/L (136-145)
[2024-12-03 07:46] VITALS: TEMP 98
--- NOTE | 2024-12-03 09:27 | ECG ---
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
[2024-12-03 15:00] VITALS: BP 124/78; PULSE 80; RESP 25; O2SAT 99
--- NOTE | 2024-12-03 17:55 | DVHPN2 ---
Progress Note - Dictate Date Seen: Dec 03, 2024 (Late entry time of visit was for 3.30 p.m.In ER bed 19) Medical Necessity Reason Pt with a Central, PICC or Fol: No Subjective Patient seen at bedside resting comfortably Patient states his abdominal pain has improved with pain medication There was no nausea vomiting Patient is a poor historian and could not give detailed history of his stent placement and liver cancer He believes his stent was placed in [place] [facility] Patient is tolerating a Clear liquid diet vital signs Vital Sign Date Time Temp Pulse Resp B/P (MAP) Pulse Ox O2 Delivery O2 Flow Rate FiO2 12/03/24 15:00 80 25 124/78 (93) 99 12/03/24 07:46 98.0 98.0 12/03/24 07:46 Room Air* 0 21 Total Intake and Output 12/02/24 12/02/24 12/03/24 15:00 23:00 07:00 Intake Total 725 ml 100 ml Output Total 500 ml 200 ml Balance 225 ml -100 ml medications Current Medications Medications Dose Ordered Sig/Latrell Route Start Time Stop Time Status Last Admin Dose Admin Metronidazole 100 ml @ 100 mls/hr Q8HR IV 12/02/24 06:00 12/03/24 06:24 100 MLS/HR Pantoprazole Sodium 40 mg DAILY IV 12/02/24 10:00 12/03/24 11:57 40 MG Levofloxacin/ Dextrose 100 ml @ 100 mls/hr DAILY IV 12/02/24 10:00 12/03/24 11:57 100 MLS/HR Morphine Sulfate 2 mg Q4HPRN PRN IV 12/02/24 05:00 12/03/24 06:25 2 MG Ondansetron HCl 4 mg Q4HPRN PRN IV 12/02/24 05:15 12/03/24 06:25 4 MG objective Moderately built and nourished male in no acute distress HEENT examination scleral icterus Lungs clear Cardio S1-S2 regular rate and rhythm Abdomen is soft mild tenderness in the right upper quadrant no rigidity no guarding Extremities no edema Neuro grossly intact laboratory and microbiology Laboratory Tests 12/03/24 05:23 Test 12/03/24 05:23 Range/Units Serum Glucose 91 74-106 mg/dL MRCP IMPRESSION: 1. Heterogeneous, masslike appearance appearance involving most of the left hepatic lobe, poorly evaluated on noncontrast enhanced exam. Malignancy not excluded. There appears to be mild diffusion restriction and capsular retraction. 2. Biliary stent in place with intrahepatic biliary ductal dilatation involving the right intrahepatic bile ducts. 3. Dilated common bile duct with possible choledocholithiasis distal to biliary stent. 4. Distended gallbladder with sludge and/or gallstones. Additional findings as described above. 5. T2 hyperintense lesion in the right hepatic lobe in close proximity to and possibly contiguous with a right intrahepatic bile duct, possible choledochal cyst. Problems(with codes): (1) Malignancy (2) Hepatic encephalopathy (3) Abdominal pain (4) Transaminitis (5) Altered level of consciousness (6) Liver cancer (7) Hyperbilirubinemia Prognosis Plan Discharge planning is in progress Patient already has and appointment with a gastro group tomorrow He will follow up with his primary care doctor and monitor his labs Patient may possibly be a hospice candidate He was treated with IV antibiotics in the hospital MRCP findings noted Plan discussed with: Patient JASSI JUAREZ MD Dec 03, 2024 17:55
--- NOTE | 2024-12-03 17:58 | DVHDS2 ---
Discharge Summary Date of Admission Dec 02, 2024 at 00:25 Date of Discharge: Dec 03, 2024 Labs/Diagnostic Data: Laboratory Results Test 12/03/24 05:23 12/02/24 05:12 12/02/24 01:00 12/01/24 21:45 White Blood Count 14.3 10^3/uL (4.4-10.8) Red Blood Count 3.13 10^6/uL (4.5-5.90) Hemoglobin 9.0 g/dL (13.5-17.5) Hematocrit 26.3 % (41.0-53.0) Mean Corpuscular Volume 83.9 fL (80.0-100.0) Mean Corpuscular Hemoglobin 28.7 pg (28.0-32.0) Mean Corpuscular Hemoglobin Concent 34.2 g/dL (32.0-36.0) Red Cell Distribution Width 18.6 % (11.8-14.3) Platelet Count 471 10^3/uL (140-450) Mean Platelet Volume 6.5 fL (6.9-10.8) Neutrophils (%) (Auto) 75.8 % (37.0-80.0) Lymphocytes (%) (Auto) 6.9 % (10.0-50.0) Monocytes (%) (Auto) 16.5 % (0.0-12.0) Eosinophils (%) (Auto) 0.2 % (0.0-7.0) Basophils (%) (Auto) 0.6 % (0.0-2.0) Neutrophils # (Auto) 10.8 10 ^3/uL (1.6-8.6) Lymphocytes # (Auto) 1.0 10 ^3/uL (0.4-5.4) Monocytes # (Auto) 2.4 10 ^3/uL (0-1.3) Eosinophils # (Auto) 0 10 ^3/uL (0-0.8) Basophils # (Auto) 0.1 10 ^3/uL (0-0.2) Nucleated Red Blood Cells 0.0 % Sodium Level 133 mmol/L (136-145) Potassium Level 3.1 mmol/L (3.5-5.1) Chloride Level 100 mmol/L (98-107) Carbon Dioxide Level 22 mmol/L (20-31) Anion Gap 11 (5-15) Blood Urea Nitrogen 9 mg/dL (9-23) Creatinine 0.42 mg/dL (0.700-1.30) Glomerular Filtration Rate Calc 113 mL/min (>90) BUN/Creatinine Ratio 21.4 (10.0-20.0) Serum Glucose 91 mg/dL (74-106) Calcium Level 8.7 mg/dL (8.7-10.4) Total Bilirubin 7.1 mg/dL (0.2-1.0) Aspartate Amino Transferase (AST) 69 U/L (13-40) Alanine Aminotransferase (ALT) 55 U/L (7-40) Alkaline Phosphatase 318 U/L (46-116) Total Protein 5.9 g/dL (5.7-8.2) Albumin 2.9 g/dL (3.2-4.8) Prothrombin Time 14.8 sec (9.3-11.8) Prothrombin Time INR 1.45 (0.9-1.15) Urine Color Dark-yellow (Yellow) Urine Clarity Clear (Clear) Urine pH 7.0 (5.0-9.0) Urine Specific [place] > 1.050 (1.001-1.035) Urine Protein Trace (Negative) Urine Ketones Trace (Negative) Urine Blood Negative /uL (Negative) Urine Nitrite Negative (Negative) Urine Bilirubin 2+ (Negative) Urine Urobilinogen Normal mg/dL (Negative) Urine Leukocyte Esterase Negative /uL (Negative) Urine RBC 3 /hpf (0 - 3) Urine Microscopic WBC < 1 /HPF (0-3) Urine Squamous Epithelial Cells Few /hpf (<5) Urine Bacteria None seen /hpf (None Seen) Urine Glucose Normal mg/dL (Normal) Troponin I High Sensitivity 4 ng/L (</=54) Test 12/01/24 20:50 Lactic Acid Level 1.3 mmol/L (0.4-2.0) Ammonia < 10 umol/L (11-32) Lipase 18 U/L (12-53) Other Laboratory Tests 12/03/24 05:23 Brief Hx & Hospital Course: Mr. Guy Holloway is a 74 year old male with a history of colon cancer , liver cancer who presents with a chief complaint of generalized weakness, abdominal pain, ALOC reported by family. Patient reports loss of appetite and progressive worsening of jaundice. Noted abdominal pain. Patient is alert and oriented x3 reports generalized abdominal pain with generalized weakness and jaundice. Patient reports he is on chemotherapy for the liver CA. Patient denies diarrhea, nausea, vomiting, dizziness, headaches, fevers, chills, dysuria, hematuria. Patient admitted for further evaluation. He is admitted and received supportive care and treatment. His weakness felt secondary to poor oral intake and metastatic colon cancer to the liver. This is discussed with the patient as well as his son who is at bedside. Patient already has a follow up appointment with his oncologist in the next 24 hours. Patient apparently is being getting chemo treatments for his cancer. Patient is advised to stay on protein shakes at home and drink plenty of water to prevent dehydration and weakness. Otherwise while in the hospital rest of his workup is normal. He is not having any other issues. Therefore drug abuse social worker involved and home Health, walker and physical therapy is being arranged and being discharged home in stable condition. Patient and his son who is at bedside verbalized understanding of his hospital diagnosis, treatment he received, discharge medications, discharge instructions and agree with the discharge follow-up plan of care as outlined. Consults/Reason for consult Assessment 74-year-old with a history of colon cancer with the liver Mets on chemotherapy presenting with the abdominal pain altered level of consciousness and jaundice Physical examination shows flexion to be icteric and tenderness in the right upper quadrant Bilirubin was seven AST of 66 ALT of 64 alk phos is 436 ammonia level is normal Clinical impression Carcinoma of the colon with Mets to the liver with worsening jaundice properly from metastases No evidence of any hepatic encephalopathy at this time ammonia level is normal Plan/Recommendation Oncology consult Symptomatic treatment Monitor the bilirubin and liver enzymes closely Watch for hepatic encephalopathy Thank you Dr. French Plan discussed with: Patient DEMETRIO FRENCH MD Dec 02, 2024 12:11 Operations or Procedures PROCEDURE(s): MRCP - MRCP MRI REASON: rule out cholangiocarcinoma ORDER NUMBER(s): [id number], ACCESSION NUMBER(s): [id number] CLINICAL INFORMATION: Rule out cholangiocarcinoma. History of liver cancer. TECHNIQUE: Multisequence multiplanar MRI images of the abdomen were obtained without IV contrast. Heavily T2-weighted MRCP images were obtained. 3D MRCP images were created. COMPARISON: MRI MRCP MRI on DOS: 03/01/24 FINDINGS: Examination is limited without IV contrast, particularly for evaluating for malignancy. Distended gallbladder with likely sludge and/or layering gallstones. There is a biliary stent in place, when correlated with recent CT exam, with the stent extending from the common bile duct into the right hepatic duct. There is intrahepatic biliary ductal dilatation involving the right hepatic lobe. The common bile duct measures up to 8.5 mm in diameter, mildly dilated. There are areas of T2 hypointense signal within the common bile duct, possibly due to gallstones. T2 hyperintense lesion in the right hepatic lobe segment VII measures up to 2.8 cm appears to correlate with a low-density lesion in this location on recent CT. The lesion is in close proximity to and possibly contiguous with a right intrahepatic bile duct. Heterogeneous signal in the left hepatic lobe, poorly delineated from the adjacent liver parenchyma on noncontrast imaging with masslike appearance measuring up to 8.5 cm in greatest dimension, correlating with the findings seen on CT, although not well characterized without IV contrast. There is associated capsular retraction. There appears to be mild diffusion restriction in this location. The left hepatic lobe is overall small in size. IMPRESSION: 1. Heterogeneous, masslike appearance appearance involving most of the left hepatic lobe, poorly evaluated on noncontrast enhanced exam. Malignancy not excluded. There appears to be mild diffusion restriction and capsular retraction. 2. Biliary stent in place with intrahepatic biliary ductal dilatation involving the right intrahepatic bile ducts. 3. Dilated common bile duct with possible choledocholithiasis distal to biliary stent. 4. Distended gallbladder with sludge and/or gallstones. Additional findings as described above. 5. T2 hyperintense lesion in the right hepatic lobe in close proximity to and possibly contiguous with a right intrahepatic bile duct, possible choledochal cyst. ATED BY: NIRAJ HUA DO DICTATED DATE/TIME: 12/02/24 1247 Condition at Discharge: Stable Final Diagnosis/Problems List gen weakness due to cancer, metastatic colon cancer to liver, jaundice Discharge Disposition: Home Discharge Instruct/Medications Diet: Consistent carbohydrate, Cardiac 2g Na,low cholest Activity: No Restrictions, As Tolerated Activity comment: with lucas Follow Up/Referral: oncology tomorrow as you are scheduled Medications: home meds Continued Medications: Atorvastatin Calcium (Atorvastatin Calcium) 10 Mg Tab 1 TAB PO DAILY Omeprazole (Omeprazole Dr) 40 Mg Cap 1 CAP PO DAILY Discharge Statement: "Patient was advised to return to the ER or call 911 if any headaches, dizziness, shortness of breath, chest pain, abdominal pain, bleeding, fevers, or worsening of medical condition. Patient was counseled about treatment plan, medications, possible side effects, patientverbalized understanding. All questions were answered to the best of my ability. This discharge took greater then 30 minutes in planning, reviewing documentation, counseling the patient, and discussing with other team members." ASSESSMENT ASSESSMENT Assessment gen weakness due to cancer, metastatic colon cancer to liver, jaundice ANENLISE AVALOS MD Dec 03, 2024 17:58
== END 2024-12-03 16:47 | disposition home or self-care (01) | DRG 435 ==
LOC: EDBD 18:39 → ER 18:39 → EDUNIT# 18:39 → OVERFLOW 12-02 00:25
PROVIDERS: ADMIT Nurse Practitioner Family; ATTEND Nurse Practitioner Family
DX: C78.7 Secondary malignant neoplasm of liver and intrahepatic bile duct (principal); G93.41 Metabolic encephalopathy; C18.9 Malignant neoplasm of colon, unspecified; E80.6 Other disorders of bilirubin metabolism; R74.01 Elevation of levels of liver transaminase levels; K76.82 Hepatic encephalopathy; Z81.8 Family history of other mental and behavioral disorders; Z79.899 Other long term (current) drug therapy
CPT/HCPCS: 36415; 70450; 71045; 74177; 74181; 80053; 81001; 82140; 83605; 83690; 84484; 85025; 85610; 87040; 87086; 93005; 96365; G0378; J0692; J1956; J2405; J2470; J3490